=== PATIENT | male | born 1960 | race Caucasian/White ===

== ENCOUNTER 2021-04-18 11:26 | Emergency (ER) | payer MEDICARE, SELFPAY ==
[2021-04-18] VITALS (9 sets, daily range): BP systolic 100–131; BP diastolic 60–101; PULSE 100–136; RESP 16–31; TEMP 36.4; O2SAT 92–100; BMI 31.8
--- NOTE | 2021-04-18 11:55 | PC.NURSE ---
upon initial triage assessment pt was alert and oriented and answering questions appropriately. pt then began to appear confused and restless, his legs continued thrashing. PER ems pt reports he drinks a little . info forwarded to ER physician
[2021-04-18] MEDS: pantoprazole 40 mg SDV 80 MG IVP (12:20)
[2021-04-18 12:32] LABS: Basophils % 0.2 %; Hematocrit 31.4 % (42.0-52.0); Hemoglobin 10.2 g/dL (11.7-16.6); Lymphocytes # 2.1 10^3/uL (0.8-4.8); Lymphocytes % 16.7 %; Mean Corpuscular HGB Conc 32.5 g/dL (30.0-36.0); Mean Corpuscular Hemoglobin 31.8 pg (28.0-34.0); Mean Corpuscular Volume 97.8 fl (80-94); Mean Platelet Volume 11.9 fL (7.4-10.4); Monocytes # 0.6 10^3/uL (0.2-0.9); Monocytes % 4.8 %; Neutrophils # 9.64 10^3/uL (1.8-7.7); Neutrophils % 77.5 %; Nucleated Red Blood Cells % 0 %; Platelet Count 269 10^3/cmm (130-400); Red Blood Count 3.21 10^6/uL (4.1-5.3); Red Cell Distribution Width 12.8 % (12.1-15.1); White Blood Count 12.4 10^3/uL (4.0-10.0)
[2021-04-18 12:42] LABS: Partial Thromboplastin Time 33.8 SECONDS (23.9-36.7)
--- NOTE | 2021-04-18 12:45 | PC.NURSE ---
pt given 2 emergency units of O- blood. Blood not scanned in TAR. 1st unit started at 1225 and was administered at pressure bag rate. 2nd unit started at 1231 administered at pressure bag rate. Both units fully infused at this time.
--- NOTE | 2021-04-18 12:47 | XR_ITS ---
WS: [id number] Exam: XR abdomen 1V* [id number] Date/Time of Exam: 04/18/2021 12:47 PM Reason For Exam: confirm NG tube placement An enteric tube is looped in the fundus of the stomach. No sign of obvious organ enlargement. No obv ious bowel obstruction. XR/XR abdomen 1V* [id number] IMPRESSION: 1. Limited exam showing enteric tube looped in the stomach.
[2021-04-18 12:50] LABS: Alanine Aminotransferase 47 U/L (0-41); Albumin Level 3.6 g/dL (3.5-5.2); Alkaline Phosphatase 55 IU/L (40-130); Aspartate Amino Transferase 22 U/L (0-40); Blood Urea Nitrogen 39 mg/dL (8-23); Calcium 8.7 mg/dL (8.5-10.5); Carbon Dioxide 20 mmol/L (22-29); Chloride 107 mmol/L (98-107); Globulin 2.6 g/dL (1.3-4.6); Glomerular Filtration Rate 75.5 mL/min (90-130); Glucose 194 mg/dL (65-115); Osmolality Calculated 309 mOsm/kg (285-295); Sodium 142 mmol/L (136-145); Total Bilirubin 0.4 mg/dL (0.15-1.2); Total Protein 6.2 g/dL (6.6-8.7)
[2021-04-18] MEDS: ondansetron 2 mg/ML SDV 2 mL 4 MG IVP (12:50)
[2021-04-18] MEDS: haloperidol inj 5 mg/mL INJ 1 mL IVP (12:50)
[2021-04-18 12:51] LABS: Anion Gap 19.5 (5-19); Potassium 4.5 mmol/L (3.5-5.1)
[2021-04-18] MEDS: calcium gluconate 0.1 gm/mL 10% SDV 10mL 2 GM IVP (12:53)
[2021-04-18 12:56] LABS: ABG PCO2 24.2 mmHg (35-45); ABG PH Result 7.36 (7.35-7.45); Arterial Blood Gas Hematocrit 40.9 % (42-52); Base Excess ABG -9.8 mmol/L (-2.0-2.0); Blood Gas Allen Test Pos; Blood Gas Operator Identificat CAK; Blood Gas Sample Site Brachial, right; Blood Gas Sample Type Arterial; HCO3 ABG 13.7 mmol/L (22-26); Oxygen Device ROOM AIR
[2021-04-18] MEDS: pantoprazole 40 MG in sodium chloride 0.9% (plus) 100 ML 20 MG IV (13:04)
[2021-04-18] MEDS: LORazepam 2 mg/mL INJ 1 mL IVP (13:10)
[2021-04-18] MEDS: octreotide 500 MCG in sodium chloride 0.9% (100 ml) 100 ML 10.1 MCG IV (13:15)
[2021-04-18] MEDS: octreotide 100 mcg/mL SDV 50 MCG IVP (13:17)
[2021-04-18 13:25] LABS: INR 1.22 (0.8-1.2)
[2021-04-18] MEDS: cefTRIAXone 1,000 MG in sodium chloride 0.9% (plus) 50 ML 100 MG IV (13:32)
--- NOTE | 2021-04-18 13:33 | PC.NURSE ---
unit # 1 ended 1250 unit number 2 ended 1300 pt had no signs of transfusion reactions, pt vss throughout transfusion
[2021-04-18 14:03] LABS: Basophils % 0.2 %; Hematocrit 41.3 % (42.0-52.0); Lymphocytes # 1.4 10^3/uL (0.8-4.8); Lymphocytes % 12.9 %; Mean Corpuscular HGB Conc 31.5 g/dL (30.0-36.0); Mean Corpuscular Hemoglobin 30.2 pg (28.0-34.0); Mean Platelet Volume 11.4 fL (7.4-10.4); Monocytes # 0.7 10^3/uL (0.2-0.9); Monocytes % 6.4 %; Neutrophils # 8.92 10^3/uL (1.8-7.7); Neutrophils % 79.8 %; Nucleated Red Blood Cells % 0 %; Platelet Count 164 10^3/cmm (130-400); White Blood Count 11.2 10^3/uL (4.0-10.0)
--- NOTE | 2021-04-18 14:23 | ED_ITS ---
HPI - General Adult General: Chief complaint: GI Bleed Stated complaint: GI BLEED Time Seen by Provider: 04/18/21 11:54 History of Present Illness: HPI narrative: Patient is a 61-year-old male with history of CAD on aspirin Plavix presenting to the emergency room after 5 episodes of bright red blood emesis today. Per , patient was found this morning confused and vomiting 2 episodes of blood. EMS was alerted patient had 2 more episodes. Patient was brought to the emergency room for evaluation. On arrival, patient is AO x1, confused. Patient is able to follow simple commands. I discussed case with who tells me the patient does not have a history of cirrhosis however does drink alcohol daily. Onset:5 hrs ago Duration:5 hrs Location:home Severity:severe Review of Systems Narrative: Constitutional: No fever, no chills. HEENT: No vision changes CV: No chest pain, no palpitations PULM: no cough, no dyspnea. GI: No abdominal pain, +N/+V/ +bloody emesis/-D. : No dysuria MSKEL: No muscle pain SKIN: No new rashes, no lesions. NEURO: No headache, no focal weakness. +confusion HEME: No visible bruises PSYCH: Normal mood Physical Exam Narrative: EXAM NARRATIVE: Head: Atraumatic Eyes: PERRL, conjunctiva without injection ENT: Mucous membrane moist NECK: Supple, ROM intact LUNGS: LCTAB, no crackles/rhonchi CV: Sinus tachycardia ABDOMEN: Soft, nontender in all quadrants EXTREMITY: Normal ROM SKIN: No rash or erythema NEURO: Awake and alert, no focal motor deficits PSYCH: Normal mood and affect Course Vital Signs: Vital signs: Vital Signs Temperature 97.5 F L 04/18/21 11:33 Pulse Rate 110 H 04/18/21 15:20 Respiratory Rate 16 04/18/21 15:20 Blood Pressure 128/101 04/18/21 15:20 Pulse Oximetry 97 04/18/21 15:20 MDM - General Adult MDM Narrative: Medical decision making narrative: [61]yo patient w/ hx of plavix and ASA use for CAD presenting to the ED w/ bright red hematemesis + confusion. Given history and exam patient?s presentation most consistent with upper GI bleed possibly secondary to peptic ulcer disease or variceal bleeding. History, presentation, exam and workup unlikely to be aortoenteric fistula, ENT bleeding mimic, Boerhaave?s/retching, Pulmonary bleeding mimic, or dieulafoy lesion. Interventions: Zofran 4mg 2L NS Protonix 40mg IVP Octreotide 50mcg push followed by 50 mcg/hr drip Ceftriaxone 1 gram IV 2u of pRBC NG tube dropped, hooked ot intermittent suction with return bright red blood x 100cc Patient kept NPO Findings: Hb: 10->13 after transfusion Shock index: > 1 (tachycardia to 120s, BP 110/80) [2:40pm] Given GI services at [facility] does not have dedicated GI service to perform emergent esophageal banding, decision was made by provider to transfer patient to outside hospital. Case discussed on the phone with Dr. Mcclellan at [facility] in [place], [place]. CT brain negative for any acute bleeding. [2:55] On reassessment, the patient appears to be hemodynamically stable, in no acute distress. Repeat hemoglobin of 13. Covid antigen negative today. Patient will transferred to [facility] by air evac. Disposition: Transfer Lab Data: Labs: Lab Results 04/18/21 04/18/21 04/18/21 Range/Units 11:51 11:51 11:51 WBC 12.4 H (4.0-10.0) 10^3/ uL RBC 3.21 L (4.1-5.3) 10^6/u L Hgb 10.2 L (11.7-16.6) g/dL Hct 31.4 L (42.0-52.0) % MCV 97.8 H (80-94) fl MCH 31.8 (28.0-34.0) pg MCHC 32.5 (30.0-36.0) g/dL RDW 12.8 (12.1-15.1) % Plt Count 269 (130-400) 10^3/c mm MPV 11.9 H (7.4-10.4) fL Neut % (Auto) 77.5 % Lymph % (Auto) 16.7 % Young % (Auto) 4.8 % Eos % (Auto) 0.0 % Baso % (Auto) 0.2 % Neut # (Auto) 9.64 H (1.8-7.7) 10^3/u L Lymph # (Auto) 2.1 (0.8-4.8) 10^3/u L Young # (Auto) 0.6 (0.2-0.9) 10^3/u L Eos # (Auto) 0.0 (0.0-0.8) 10^3/u L Baso # (Auto) 0.0 (0.0-0.1) 10^3/u L Nucleated RBC % (a uto) 0 % Nucleated RBCs # 0.0 /100WBC PT 15.70 H (12.1-14.9) SECO NDS INR 1.22 H (0.8-1.2) APTT 33.8 (23.9-36.7) SECO NDS Specimen Type Sample Site ABG pH (7.35-7.45) ABG pCO2 (35-45) mmHg ABG pO2 (80.0-100.0) mmH g ABG HCO3 (22-26) mmol/L ABG Base Excess (-2.0-2.0) mmol/ L Moe Test Hematocrit (42-52) % O2 Delivery Device Aircraft Avionics Technician ID Sodium 142 (136-145) mmol/L Potassium 4.5 (3.5-5.1) mmol/L Chloride 107 (98-107) mmol/L Carbon Dioxide 20 L (22-29) mmol/L Anion Gap 19.5 H (5-19) BUN 39 H (8-23) mg/dL Creatinine 1.0 (0.7-1.2) mg/dL GFR Calculation 75.5 L (90-130) mL/min Glucose 194 H (65-115) mg/dL Calculated Osmolal ity 309 H (285-295) mOsm/k g Calcium 8.7 (8.5-10.5) mg/dL Total Bilirubin 0.4 (0.15-1.2) mg/dL AST 22 (0-40) U/L ALT 47 H (0-41) U/L Alkaline Phosphata se 55 (40-130) IU/L Ammonia (16-60) umol/L Total Protein 6.2 L (6.6-8.7) g/dL Albumin 3.6 (3.5-5.2) g/dL Globulin 2.6 (1.3-4.6) g/dL SARS-CoV-2 Ag (Rap id) (Negative) Blood Type Rho(D) Type Antibody Screen Crossmatch 04/18/21 04/18/21 04/18/21 Range/Units 12:34 12:44 13:40 WBC 11.2 H (4.0-10.0) 10^3/ uL RBC 4.30 (4.1-5.3) 10^6/u L Hgb 13.0 (11.7-16.6) g/dL Hct 41.3 L D (42.0-52.0) % MCV 96.0 H (80-94) fl MCH 30.2 (28.0-34.0) pg MCHC 31.5 (30.0-36.0) g/dL RDW 14.0 (12.1-15.1) % Plt Count 164 D (130-400) 10^3/c mm MPV 11.4 H (7.4-10.4) fL Neut % (Auto) 79.8 % Lymph % (Auto) 12.9 % Young % (Auto) 6.4 % Eos % (Auto) 0.0 % Baso % (Auto) 0.2 % Neut # (Auto) 8.92 H (1.8-7.7) 10^3/u L Lymph # (Auto) 1.4 (0.8-4.8) 10^3/u L Young # (Auto) 0.7 (0.2-0.9) 10^3/u L Eos # (Auto) 0.0 (0.0-0.8) 10^3/u L Baso # (Auto) 0.0 (0.0-0.1) 10^3/u L Nucleated RBC % (a uto) 0 % Nucleated RBCs # 0.0 /100WBC PT (12.1-14.9) SECO NDS INR (0.8-1.2) APTT (23.9-36.7) SECO NDS Specimen Type Arterial Sample Site Brachial, right ABG pH 7.36 (7.35-7.45) ABG pCO2 24.2 L (35-45) mmHg ABG pO2 124.0 H (80.0-100.0) mmH g ABG HCO3 13.7 L (22-26) mmol/L ABG Base Excess -9.8 L (-2.0-2.0) mmol/ L Moe Test Pos Hematocrit 40.9 L (42-52) % O2 Delivery Device Room air Aircraft Avionics Technician ID Cak Sodium (136-145) mmol/L Potassium (3.5-5.1) mmol/L Chloride (98-107) mmol/L Carbon Dioxide (22-29) mmol/L Anion Gap (5-19) BUN (8-23) mg/dL Creatinine (0.7-1.2) mg/dL GFR Calculation (90-130) mL/min Glucose (65-115) mg/dL Calculated Osmolal ity (285-295) mOsm/k g Calcium (8.5-10.5) mg/dL Total Bilirubin (0.15-1.2) mg/dL AST (0-40) U/L ALT (0-41) U/L Alkaline Phosphata se (40-130) IU/L Ammonia (16-60) umol/L Total Protein (6.6-8.7) g/dL Albumin (3.5-5.2) g/dL Globulin (1.3-4.6) g/dL SARS-CoV-2 Ag (Rap id) (Negative) Blood Type O Positive Rho(D) Type Positive Antibody Screen Negative Crossmatch See Detail 04/18/21 04/18/21 Range/Units 14:40 14:40 WBC (4.0-10.0) 10^3/ uL RBC (4.1-5.3) 10^6/u L Hgb (11.7-16.6) g/dL Hct (42.0-52.0) % MCV (80-94) fl MCH (28.0-34.0) pg MCHC (30.0-36.0) g/dL RDW (12.1-15.1) % Plt Count (130-400) 10^3/c mm MPV (7.4-10.4) fL Neut % (Auto) % Lymph % (Auto) % Young % (Auto) % Eos % (Auto) % Baso % (Auto) % Neut # (Auto) (1.8-7.7) 10^3/u L Lymph # (Auto) (0.8-4.8) 10^3/u L Young # (Auto) (0.2-0.9) 10^3/u L Eos # (Auto) (0.0-0.8) 10^3/u L Baso # (Auto) (0.0-0.1) 10^3/u L Nucleated RBC % (a uto) % Nucleated RBCs # /100WBC PT (12.1-14.9) SECO NDS INR (0.8-1.2) APTT (23.9-36.7) SECO NDS Specimen Type Sample Site ABG pH (7.35-7.45) ABG pCO2 (35-45) mmHg ABG pO2 (80.0-100.0) mmH g ABG HCO3 (22-26) mmol/L ABG Base Excess (-2.0-2.0) mmol/ L Moe Test Hematocrit (42-52) % O2 Delivery Device Aircraft Avionics Technician ID Sodium (136-145) mmol/L Potassium (3.5-5.1) mmol/L Chloride (98-107) mmol/L Carbon Dioxide (22-29) mmol/L Anion Gap (5-19) BUN (8-23) mg/dL Creatinine (0.7-1.2) mg/dL GFR Calculation (90-130) mL/min Glucose (65-115) mg/dL Calculated Osmolal ity (285-295) mOsm/k g Calcium (8.5-10.5) mg/dL Total Bilirubin (0.15-1.2) mg/dL AST (0-40) U/L ALT (0-41) U/L Alkaline Phosphata se (40-130) IU/L Ammonia 29 (16-60) umol/L Total Protein (6.6-8.7) g/dL Albumin (3.5-5.2) g/dL Globulin (1.3-4.6) g/dL SARS-CoV-2 Ag (Rap id) Negative (Negative) Blood Type Rho(D) Type Antibody Screen Crossmatch Imaging Data^: Other Imaging: Radiologist's impression: [address], [place] [address]CT Scan ReportSigned Patient: Shahida Crwo #: [id number]: 8At#:[id number]/Sex: 61 / MADM Date: 04/18/21Loc: ERRoom/Bed:Attending Dr: Ordering Provider/Ordering MD: Milind Huff MD Date of Service: 04/18/21 Procedure(s): CT head wo con* [id number] Accession Number(s): [id number] Report Number: [id number] WS: [id number] CT HEAD NONCONTRAST HISTORY: ams TECHNIQUE: Contiguous axial imaging performed through the brain in 2.5 mm imaging. Bone and soft tissue windows. Sagittal and coronal reformats reviewed. All CT scans at [facility] use at least one of these dose optimization techniques: automated exposure control; mA and/or kV adjustment per patient size (includes targeted exams where dose is matched to clinical indication); or iterative reconstruction. DLP: 980.3 mGy.cm COMPARISON: None available. No acute intracranial hemorrhage, midline shift or mass effect. No atrophy or prior infarcts or herniation. . Mild chronic microvascular ischemic disease. Ventricles: Normal size with no hydrocephalus. No inferior displacement of cerebellar tonsils. Paranasal sinuses: Moderate mucoperiosteal thickening in the maxillary sinuses extending into the ethmoid air cells. Mild mucoperiosteal thickening in the frontal and sphenoid sinuses. Mastoid air cells: Well pneumatized. Calvarium and scalp: Skull is intact with no soft tissue edema or swelling. CT/CT head wo con* [id number] IMPRESSION: 1. No acute intracranial hemorrhage or edema. 2. Very mild chronic microvascular ischemic disease. 3. Extensive mucoperiosteal thickening throughout the sinuses. Dictated By:Gretel Martinez DOSigned By:Gretel Martinez DOSigned Date/Time:04/18/21 1511DD/ 1509 Critical Care Time Critical Care Time: Critical Care Time: Yes Total Critical Care Time: 40 Attestation: Given the high probability of imminent or life threatening deterioration of the patient?s condition without intervention, the patient was immediately assessed by myself and the nurse, and cardiac monitoring initiated. The patient was also placed on oxygen and continuous pulse oximetry initiated. During the course of the patient?s stay, I spent a considerable amount of time at the bedside performing serial re-evaluations of the patient?s hemodynamic and clinical status because of the recognized potential threat to life or limb in this condition. Clinical management of this patient involved high complexity decision making to assess, manipulate, and support vital organ system failure. I then had a chance to review all of the available laboratory and radiographic studies obtained today, and I also reviewed old records available to me at the time. Sequential vital signs were obtained. Critical care time noted below was time spent engaged in work directly related to the individual patient?s care, not including time performing procedures; however it does include time spent at the immediate bedside or elsewhere on the floor or unit. TOTAL CRITICAL CARE TIME ELAPSED: 40 minutes. BODY SYSTEM AT HIGHEST RISK: GI Discharge Plan Discharge Patient Disposition: Transfer to ED Prescriptions: No Action atorvastatin 40 mg tablet 40 mg PO DAILY RF: 0 carvedilol 6.25 mg tablet 6.25 mg PO BID RF: 0 isosorbide mononitrate 30 mg tablet extended release 24 hr 30 mg PO DAILY RF: 0 clopidogrel 75 mg tablet 75 mg PO DAILY RF: 0 lisinopril 10 mg tablet 10 mg PO DAILY RF: 0 furosemide 20 mg tablet 20 mg PO DAILY RF: 0 Referrals: Jake Dumont APRN [Family Provider] - Coding Level of Care Code ED [employer] for [employer]
--- NOTE | 2021-04-18 14:33 | CT_ITS ---
WS: [id number] CT HEAD NONCONTRAST HISTORY: ams TECHNIQUE: Contiguous axial imaging performed through the brain in 2.5 mm imaging. Bone and soft tiss ue windows. Sagittal and coronal reformats reviewed. All CT scans at [facility] use at le ast one of these dose optimization techniques: automated exposure control; mA and/or kV adjustment pe r patient size (includes targeted exams where dose is matched to clinical indication); or iterative r econstruction. DLP: 980.3 mGy.cm COMPARISON: None available. No acute intracranial hemorrhage, midline shift or mass effect. No atrophy or prior infarcts or herniation. . Mild chronic microvascular ischemic disease. Ventricles: Normal size with no hydrocephalus. No inferior displacement of cerebellar tonsils. Paranasal sinuses: Moderate mucoperiosteal thickening in the maxillary sinuses extending into the eth moid air cells. Mild mucoperiosteal thickening in the frontal and sphenoid sinuses. Mastoid air cells: Well pneumatized. Calvarium and scalp: Skull is intact with no soft tissue edema or swelling. CT/CT head wo con* [id number] IMPRESSION: 1. No acute intracranial hemorrhage or edema. 2. Very mild chronic microvascular ischemic disease. 3. Extensive mucoperiosteal thickening throughout the sinuses.
[2021-04-18 15:08] LABS: Ammonia 29 umol/L (16-60)
[2021-04-18 15:09] LABS: SARS Covid-2 Antigen Negative (Negative)
== END 2021-04-18 16:45 ==
PROVIDERS: Emergency Provider Emergency Medicine; Family Provider Nurse Practitioner Family
DX: K92.0 Hematemesis (principal); Z79.02 Long term (current) use of antithrombotics/antiplatelets; Z20.822 Contact with and (suspected) exposure to COVID-19
CPT/HCPCS: 36600; 70450; 74018; 80053; 82140; 82803; 85025; 85610; 85730; 86850; 86900; 86920; 87426; 96365; 96367; 96375; 99285; C9113; J0610; J0696; J1630; J2060; J2354; J2405; P9016